=== PATIENT | female | born 1940 ===

== ENCOUNTER 2019-09-08 15:21 | Inpatient (IN) | payer MEDICARE, OTHER, SELFPAY ==
[2019-09-08] VITALS (8 sets, daily range): BP systolic 114–173; BP diastolic 64–105; PULSE 62–134; RESP 16–22; TEMP 37.1–38.8; O2SAT 91–100; BMI 22.4
--- NOTE | 2019-09-08 14:52 | ED_ITS ---
Entered by Dominique Keita, acting as scribe for Mars Velez MD HPI - Fever General: Chief Complaint: Fever Stated Complaint: FEVER X 3 DAYS Time Seen by Provider: 09/08/19 14:52 Source: patient and RN notes reviewed Mode of arrival: ambulatory Limitations: no limitations History of Present Illness: HPI Narrative: 79 yo female presents to ED with complaints of a fever that she has had for 3 days. She said she also has had a headache for the 3 days. The patient has had sick contact recently (her grandson had the flu). She denies any other pain at this time. Her PCP is Greta Walker MD elicited complaint: fever Onset (ago): day(s) (3) Measured temperature: 101.9 F Context: sick contacts Exacerbating factors: nothing Relieving factors: nothing Associated symptoms: Reports headache(s); Deny abdominal pain, chills, chest pain, diarrhea, dysuria, nausea or vomiting Treatments prior to arrival fever: none Review of Systems Const: Denies: chills, body aches or change in appetite Eyes: Denies: blurry vision or eye discomfort ENMT: Denies: throat pain or dental pain Card: Denies: chest pain Resp: Denies: shortness of breath GI: Denies: abdominal pain, nausea, vomiting or diarrhea : Denies: painful urination Musc: Denies: neck pain or back pain Skin/Breast: Denies: rash Neuro: Reports: headache Psych: Denies: depression Jose Cruz/Lymph: Denies: easy bruising All/Imm: Denies: hives PFSH ED PFSH: Statuses (acute, chronic, etc) shown below reflect problem list status as previously entered and may not be historically accurate Medical History (Updated 09/08/19 @ 18:24 by Elif Calix MD) Hypertension (Acute) Osteoarthritis (Acute) Surgical History (Updated 09/08/19 @ 18:24 by Elif Calix MD) H/O exploratory laparotomy (Acute) History of partial colectomy (Acute) With reversal Family History (Updated 09/08/19 @ 18:24 by Elif Calix MD) Sister Cancer Breast cancer Social History (Updated 09/08/19 @ 18:25 by Elif Calix MD) Smoking and tobacco status: former smoker Quit status (tobacco): has quit using tobacco Year quit tobacco: 1991 Alcohol intake: never Substance/Drug Use: never Lives independently: Yes Household members: other Details: Grandson lives with her Physical Exam Const: COMMON NORMALS: no apparent distress, oriented x3 and healthy appearing HENMT: COMMON NORMALS: normocephalic and head/scalp atraumatic HEAD & SCALP: normocephalic and atraumatic Eye: COMMON NORMALS: PERRL and EOMs intact bilaterally PUPIL: Yes PERRL Neck/C-Spine: COMMON NORMALS: full ROM and supple Chest: COMMONS NORMALS: inspection of chest normal and palpation of chest normal Resp: COMMON NORMALS: normal respiratory effort, no retractions and no use of accessory muscles OTHER: rales in rll Cardio: COMMON NORMALS: regular rate, regular rhythm and no murmurs RATE: regular rate RHYTHM: regular rhythm GI: COMMON NORMALS: normal to inspection, nondistended, normoactive bowel sounds, soft to palpation, non-tender and no masses PALPATION: Yes soft Extremity: COMMON NORMALS: normal to inspection and full ROM Neuro: COMMON NORMALS: oriented x3, moves all extremities and no focal motor deficits Psych: COMMON NORMALS: mental status grossly normal, thought process normal and cooperative THOUGHT PROCESS: normal thought process Skin: COMMON NORMALS: no rashes or lesions noted and no wounds GENERAL SKIN EXAM: no rashes or lesions noted Course Vital Signs: Vital signs: Vital Signs Temperature 99.8 F H 09/08/19 17:30 Pulse Rate 134 H 09/08/19 17:30 Respiratory Rate 18 09/08/19 17:30 Blood Pressure 114/94 09/08/19 17:30 Pulse Oximetry 95 09/08/19 17:30 MDM - Fever MDM Narrative: Medical decision making narrative: Patient presents here with a right lower lobe pneumonia. Patient's x-ray here shows a pneumonia and likely causing her fever as well. Her blood pressure is been normal and she is not septic. We will start her on antibiotics I spoke to hospitalist and will admit. Patient does not have influenza. Lab Data: Labs: Lab Results 09/08/19 09/08/19 09/08/19 Range/Units 14:58 15:12 15:12 WBC 1.9 L (4.0-10.0) 10^3/ uL RBC 2.57 L (4.1-5.3) 10^6/u L Hgb 9.2 L (11.5-15.3) g/dL Hct 27.5 L (37.0-47.0) % MCV 107.0 H (81-99) fL MCH 35.8 H (28.0-34.0) pg MCHC 33.5 (30.0-36.0) g/dL RDW 13.2 (12.1-15.1) % Plt Count 117 L (130-400) 10^3/c mm MPV 9.2 (7.4-10.4) fL Neut % (Auto) 68.6 % Lymph % (Auto) 21.8 % Mclean % (Auto) 8.5 % Eos % (Auto) 0.0 % Baso % (Auto) 0.0 % Neut # (Auto) 1.3 L (1.8-7.7) 10^3/u L Lymph # (Auto) 0.4 L (0.8-4.8) 10^3/u L Mclean # (Auto) 0.2 (0.2-0.9) 10^3/u L Eos # (Auto) 0.0 (0.0-0.8) 10^3/u L Baso # (Auto) 0.0 (0.0-0.1) 10^3/u L Nucleated RBC % (a uto) 0 % Nucleated RBCs # 0.0 /100WBC Sodium 131 L (136-145) mmol/L Potassium 3.8 (3.5-5.1) mmol/L Chloride 92 L (98-107) mmol/L Carbon Dioxide 24 (22-29) mmol/L Anion Gap 18.8 (5-19) BUN 27 H (8-23) mg/dL Creatinine 1.1 H (0.5-0.9) mg/dL Glucose 110 H (74-106) mg/dL Lactic Acid (Sepsi s) (0.5-2.2) mmol/L Calcium 9.8 (8.5-10.5) mg/dL Total Bilirubin 0.5 (0.15-1.2) mg/dL AST 42 H (0-32) U/L ALT 19 (0-33) U/L Alkaline Phosphata se 99 (35-105) IU/L Total Protein 7.2 (6.6-8.7) g/dL Albumin 4.0 (3.5-5.2) g/dL Globulin 3.2 (1.3-4.6) g/dL Lipase 46 (13-60) U/L Urine Color (Yellow) Urine Appearance (CLEAR) Urine pH (5-7) Ur Specific Gravit y (1.005-1.030) Urine Protein (Negative) Urine Glucose (UA) (Normal) Urine Ketones (Negative) Urine Occult Blood (Negative) Urine Nitrate (Negative) Urine Bilirubin (NEGATIVE) Urine Urobilinogen (Negative) mg/dL Ur Leukocyte Kim ase (Negative) Urine RBC (0-2) /hpf Urine WBC (0-5) /hpf Ur Squamous Epith Cells (0-5) Urine Bacteria (NONE) Influenza Type A A g Negative (Negative) POC Influenza B Ag Negative (Negative) 09/08/19 09/08/19 Range/Units 15:16 15:28 WBC (4.0-10.0) 10^3/ uL RBC (4.1-5.3) 10^6/u L Hgb (11.5-15.3) g/dL Hct (37.0-47.0) % MCV (81-99) fL MCH (28.0-34.0) pg MCHC (30.0-36.0) g/dL RDW (12.1-15.1) % Plt Count (130-400) 10^3/c mm MPV (7.4-10.4) fL Neut % (Auto) % Lymph % (Auto) % Mclean % (Auto) % Eos % (Auto) % Baso % (Auto) % Neut # (Auto) (1.8-7.7) 10^3/u L Lymph # (Auto) (0.8-4.8) 10^3/u L Mclean # (Auto) (0.2-0.9) 10^3/u L Eos # (Auto) (0.0-0.8) 10^3/u L Baso # (Auto) (0.0-0.1) 10^3/u L Nucleated RBC % (a uto) % Nucleated RBCs # /100WBC Sodium (136-145) mmol/L Potassium (3.5-5.1) mmol/L Chloride (98-107) mmol/L Carbon Dioxide (22-29) mmol/L Anion Gap (5-19) BUN (8-23) mg/dL Creatinine (0.5-0.9) mg/dL Glucose (74-106) mg/dL Lactic Acid (Sepsi s) 1.1 (0.5-2.2) mmol/L Calcium (8.5-10.5) mg/dL Total Bilirubin (0.15-1.2) mg/dL AST (0-32) U/L ALT (0-33) U/L Alkaline Phosphata se (35-105) IU/L Total Protein (6.6-8.7) g/dL Albumin (3.5-5.2) g/dL Globulin (1.3-4.6) g/dL Lipase (13-60) U/L Urine Color Yellow (Yellow) Urine Appearance Sl hazy (CLEAR) Urine pH 6.5 (5-7) Ur Specific Gravit y 1.010 (1.005-1.030) Urine Protein Neg (Negative) Urine Glucose (UA) Norm (Normal) Urine Ketones 1+ H (Negative) Urine Occult Blood 2+ H (Negative) Urine Nitrate Negative (Negative) Urine Bilirubin Neg (NEGATIVE) Urine Urobilinogen Norm (Negative) mg/dL Ur Leukocyte Kim ase Negative (Negative) Urine RBC 5-10 H (0-2) /hpf Urine WBC None (0-5) /hpf Ur Squamous Epith Cells 0-4 H (0-5) Urine Bacteria Trace (NONE) Influenza Type A A g (Negative) POC Influenza B Ag (Negative) Imaging Data^: CXR: Attestation: I personally reviewed and interpreted this imaging study as follows: My impression: RLL pneumonia Discharge Plan Discharge Patient Disposition: Admitted As Inpatient Clinical Impression: Community acquired pneumonia Qualifiers: Laterality: right Lung location: lower lobe of lung Qualified Code(s): J18.9 - Pneumonia, unspecified organism Condition: Stable Referrals: Melissa York MD [Family Provider] - Coding Level of Care Code ED [facility] Trapper for [facility] Fwd Exam Problem Focused The documentation recorded by the Bossman rogers Valerie R, accurately reflects the service I personally performed and the decisions made by me, Mars Velez MD Sep 08, 2019 15:21
--- NOTE | 2019-09-08 14:56 | XRR_ITS ---
PROCEDURE INFORMATION: Exam: XR Chest, 1 View Exam date and time: 09/08/2019 3:12 PM Age: 79 years old Clinical indication: Fever TECHNIQUE: Imaging protocol: XR of the chest Views: 1 view. COMPARISON: CR Chest 1 [place] [id number] 06/21/2014 10:55 AM FINDINGS: Lungs: There is area of patchy consolidation at the right medial lung base. Pleural space: Unremarkable. No pleural effusion. No pneumothorax. Heart/Mediastinum: Unremarkable. No cardiomegaly. Bones/joints: Unremarkable. XR/XR chest 1V portable [id number] IMPRESSION: Patchy consolidation at right lung base medially.
[2019-09-08 15:29] LABS: Hematocrit 27.5 % (37.0-47.0); Hemoglobin 9.2 g/dL (11.5-15.3); Lymphocytes % 21.8 %; Mean Corpuscular HGB Conc 33.5 g/dL (30.0-36.0); Mean Corpuscular Hemoglobin 35.8 pg (28.0-34.0); Mean Platelet Volume 9.2 fL (7.4-10.4); Monocytes % 8.5 %; Neutrophils % 68.6 %; Platelet Count 117 10^3/cmm (130-400); Red Blood Count 2.57 10^6/uL (4.1-5.3); Red Cell Distribution Width 13.2 % (12.1-15.1); White Blood Count 1.9 10^3/uL (4.0-10.0)
[2019-09-08 15:30] LABS: Lymphocytes # 0.4 10^3/uL (0.8-4.8); Monocytes # 0.2 10^3/uL (0.2-0.9); Neutrophils # 1.3 10^3/uL (1.8-7.7); Nucleated Red Blood Cells % 0 %
[2019-09-08 15:44] LABS: Alanine Aminotransferase 19 U/L (0-33); Alkaline Phosphatase 99 IU/L (35-105); Anion Gap 18.8 (5-19); Aspartate Amino Transferase 42 U/L (0-32); Blood Urea Nitrogen 27 mg/dL (8-23); Calcium 9.8 mg/dL (8.5-10.5); Carbon Dioxide 24 mmol/L (22-29); Chloride 92 mmol/L (98-107); Globulin 3.2 g/dL (1.3-4.6); Glucose 110 mg/dL (74-106); Lipase 46 U/L (13-60); Potassium 3.8 mmol/L (3.5-5.1); Sodium 131 mmol/L (136-145); Total Bilirubin 0.5 mg/dL (0.15-1.2); Total Protein 7.2 g/dL (6.6-8.7)
[2019-09-08] MEDS: morphine 4 mg/mL SDV 1 mL IVP (15:47)
[2019-09-08] MEDS: acetaminophen 325 mg Tablet 650 MG PO (15:47)
[2019-09-08] MEDS: sodium chloride 0.9% 1,000 ML 999 ML IV (15:49)
[2019-09-08] MEDS: ondansetron 2 mg/ML SDV 2 mL 4 MG IVP (15:49)
[2019-09-08 15:56] LABS: Add Urine Microscopic? YES; Bilirubin Urine Neg (NEGATIVE); Blood Urine 2+ (Negative); Glucose Urine UA Norm (Normal); Ketones Urine 1+ (Negative); Leukocyte Esterase Urine Negative (Negative); Nitrate Urine Negative (Negative); Protein Urine Neg (Negative); Urine Appearance SL Hazy (CLEAR); Urine Color Yellow (Yellow); Urobilinogen Urine Norm (Negative); pH Urine 6.5 (5-7)
[2019-09-08 15:58] LABS: Slide Review Slide Review Perform
[2019-09-08 16:04] LABS: Influenza A by IFA Negative (Negative); Influenza B by IFA Negative (Negative)
[2019-09-08 16:07] LABS: Lactic Acid level (Lactate) 1.1 mmol/L (0.5-2.2)
[2019-09-08 16:16] LABS: Bacteria Urine TRACE; Squamous Epithelial Cell Urine 0-4 (0-5)
[2019-09-08] MEDS: cefTRIAXone 1,000 MG in sodium chloride 0.9% (plus) 50 ML 100 MG IV (16:20)
[2019-09-08] MEDS: azithromycin 500 MG in sodium chloride 0.9% 250 ML 250 MG IV (17:02)
--- NOTE | 2019-09-08 18:08 | P.HP_ITS ---
Providers/Chief Complaint Admitting Physician: Elif Calix MD Chief Complaint: PNEUMONIA, FEVER History of Present Illness Leslee Barbosa is a 79 year old female with PMHx of OA, HTN, presents via EMS for evaluation of malaise and fever x 3 days. She initially thought she had the flu based on her symptoms; she did receive the influenza and pneumonia vaccines. She is not oxygen dependent at baseline, has no hx of COPD or asthma. Because she has been feeling so poorly, she has not been taking her BP meds as prescribed. She is on narcotics for chronic back and knee pain secondary to OA. She ambulates independently at home but has to use a cane whenever she goes out. Denies any recent falls. She lives at home with her grandson who called for an ambulance earlier today when patient complained that she was not getting any better. There are several family members at bedside during my assessment in the ER. Patient is able to provide much of her own history with family providing some collateral information. She was quite febrile with a T-max of 101.9F and quite hypertensive with a blood pressure 145/104. She remains tachycardic, saturating at 97% on room air. Lab work indicates leukopenia with a white count of 1.9, anemia with a hemoglobin of 9.2, thrombocytopenia with a platelet count of 117, creatinine of 1.1, BUN of 27, lactic acid of 1.1, chest x-ray showing patchy consolidation of the right lung base. She has received a dose of azithromycin and ceftriaxone. Influenza screen is negative. Explained findings from labs and imaging to patient and family at bedside, they are agreeable to the treatment plan. Review of Systems Const: Reports: fever, body aches, change in appetite (decreased appetite), fatigue and malaise; Denies: chills Eyes: Denies: change in vision ENMT: Reports: dry mouth Card: Denies: chest pain, swelling of feet/ankles or lightheadedness Resp: Denies: shortness of breath, productive cough, non-productive cough or wheezing GI: Denies: abdominal pain, nausea, vomiting, vomiting blood or blood in stool : Denies: difficulty urinating, painful urination or urinary frequency Musc: Reports: back pain (Chronic) Skin/Breast: Denies: rash Neuro: Denies: numbness in extremities or weakness in extremities Psych: Denies: anxiety Medications/Allergies Home Medications Medication Instructions Recorded Confirmed Last Taken Type bisoprolol-hydrochlorothiazide 1 tab PO DAILY 09/08/19 09/08/19 09/06/19 History conjugated estrogens [Premarin] See Rx Instructions .ROUTE .COMPLEX 09/08/19 09/08/19 Unknown History cyclobenzaprine 10 mg PO TID PRN 09/08/19 09/08/19 09/06/19 History oxycodone-acetaminophen 1 tab PO TID PRN 09/08/19 09/08/19 09/06/19 History Allergies Allergy/AdvReac Type Severity Reaction Status Date / Time Sulfa (Sulfonamide Allergy Unknown Unknown Verified 09/08/19 16:57 Antibiotics) PFSH Acute PFSH: Statuses (acute, chronic, etc) shown below reflect problem list status as previously entered and may not be historically accurate Medical History (Updated 09/08/19 @ 18:29 by Elif Calix MD) Hypertension (Acute) Osteoarthritis (Acute) Surgical History (Updated 09/08/19 @ 18:24 by Elif Calix MD) H/O exploratory laparotomy (Acute) History of partial colectomy (Acute) With reversal Family History (Updated 09/08/19 @ 18:24 by Elif Calix MD) Sister Cancer Breast cancer Social History (Updated 09/08/19 @ 18:25 by Elif Calix MD) Smoking and tobacco status: former smoker Quit status (tobacco): has quit using tobacco Year quit tobacco: 1991 Alcohol intake: never Substance/Drug Use: never Lives independently: Yes Household members: other Details: Grandson lives with her Vitals/I&O/Wt Last Vital Signs Temp 99.8 F H 09/08/19 17:30 Pulse 134 H 09/08/19 17:30 Resp 18 09/08/19 17:30 BP 114/94 09/08/19 17:30 Pulse Ox 95 09/08/19 17:30 Weight last 48 hrs Weight 52.163 kg Physical Exam Const: COMMON NORMALS: no apparent distress and oriented x3 GENERAL APPEARANCE: cooperative and comfortable ORIENTATION/CONSCIOUSNESS: Yes awake HENMT: COMMON NORMALS: normocephalic, head/scalp atraumatic, hearing grossly normal bilaterally and moist oral mucous membranes HEAD & SCALP: normocephalic and atraumatic Eye: COMMON NORMALS: PERRL, EOMs intact bilaterally and conjunctivae normal CONJUNCTIVA: Yes conjunctivae normal PUPIL: Yes PERRL Neck/C-Spine: COMMON NORMALS: full ROM GENERAL: Yes normal visual inspection and Yes trachea midline Resp: COMMON NORMALS: normal respiratory effort, no retractions, no use of accessory muscles and clear to auscultation bilaterally EFFORT & INSPECTION: Yes able to speak in complete sentences, Yes symmetric chest movement and No tachypneic AUSCULTATION: clear to auscultation bilaterally Cardio: COMMON NORMALS: regular rhythm, S1 normal heart sound, S2 normal heart sound and no murmurs RATE: tachycardic RHYTHM: regular rhythm HEART SOUNDS: S1 normal and S2 normal GI: COMMON NORMALS: normal to inspection, nondistended, normoactive bowel sounds, soft to palpation and non-tender PALPATION: Yes soft Extremity: COMMON NORMALS: normal to inspection, full ROM and no clubbing, cyanosis or edema; negative for no pedal edema Neuro: COMMON NORMALS: oriented x3, moves all extremities, no focal motor deficits and no sensory deficits noted Psych: COMMON NORMALS: mental status grossly normal, thought process normal, cooperative, affect normal and speech normal SPEECH: Yes normal speech THOUGHT PROCESS: normal thought process Skin: COMMON NORMALS: no rashes or lesions noted, no jaundice, no petechiae and no mottling GENERAL SKIN EXAM: no rashes or lesions noted Sepsis: Is patient septic: Yes Focused sepsis exam performed: Yes Data : 09/08/19 15:12 09/08/19 15:12 Micro: Microbiology 09/08/19 15:28 Blood Culture - Preliminary Blood SPECIMEN COLLECTED 09/08/19 15:23 Blood Culture - Preliminary Blood SPECIMEN COLLECTED A&P Assessment and plan (1) Community acquired pneumonia: -noted patchy consolidation of right lung base on CXR -concern for sepsis given fever, tachycardia, leukopenia, thrombocytopenia, -monitor respiratory status -supplemental oxygen as needed -monitor vital signs -received Ceftriaxone and Azithromycin in ED, continue treatment with levaquin -monitor WBC Status: Acute Qualifiers: Laterality: right Lung location: lower lobe of lung Qualified Code(s): J18.9 - Pneumonia, unspecified organism Code(s): J18.9 - Pneumonia, unspecified organism (2) Hypertension: -quite hypertensive on arrival, has been off antihypertensives for at least 2 days -resume oral antihypertensives -continue to monitor vital signs Status: Acute Qualifiers: Hypertension type: essential hypertension Qualified Code(s): I10 - Essential (primary) hypertension Code(s): I10 - Essential (primary) hypertension (3) Osteoarthritis: -resume oral pain meds Status: Acute Qualifiers: Osteoarthritis location: multiple joints Osteoarthritis type: primary Qualified Code(s): M15.0 - Primary generalized (osteo)arthritis Code(s): M19.90 - Unspecified osteoarthritis, unspecified site Additional A&P Information -Advanced age -Chronic normocytic anemia; baseline Hg 9-10; continue to monitor H/H -Chronic leukopenia; baseline WBC 3-4 -Acute thrombocytopenia; monitor platelet count -mild FREIDA; baseline Cr wnl; gentle IVF hydration. Continue to monitor renal function -low salt diet as tolerated -DVT ppx with Lovenox, monitor platelet count -fall precautions, PT evaluation -Dispo: home -Code status: FULL code Attestations Medical Necessity Statement*: Patient requires hospitalization for management of acute pneumonia, needs IV antibiotics and monitoring of respiratory and hemodynamic status. Time Spent in Patient Care: Greater than 35 minutes (>than 50% of time spent in counselling and/or direct pt care on unit) . 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
[2019-09-08 18:41] LABS: Procalcitonin 0.21 ng/mL (0-0.5)
[2019-09-08] MEDS: oxyCODONE-APAP 5-325 mg Tablet 1 TAB PO (21:11)
[2019-09-08] MEDS: levofloxacin-dextrose 5 % 750 MG/150 ML PREMIX 150 MG IV (21:12)
[2019-09-08] MEDS: sodium chloride 0.9% 1,000 ML 75 ML IV (21:12)
[2019-09-08] MEDS: hydroCHLOROthiazide 25 mg Tablet 12.5 MG PO (21:13)
[2019-09-08] MEDS: enoxaparin 40 mg/0.4 mL Syringe SUBCUT (21:18)
[2019-09-08] MEDS: cyclobenzaprine 10 mg Tablet PO (23:23)
[2019-09-09] VITALS (7 sets, daily range): BP systolic 126–171; BP diastolic 62–89; PULSE 72–139; RESP 18–24; TEMP 36.9–39.2; O2SAT 92–95
[2019-09-09] MEDS: oxyCODONE-APAP 5-325 mg Tablet 1 TAB PO ×2 (03:57→17:48)
[2019-09-09 05:30] LABS: Hematocrit 24.4 % (37.0-47.0); Hemoglobin 8.2 g/dL (11.5-15.3); Lymphocytes # 0.4 10^3/uL (0.8-4.8); Lymphocytes % 23.1 %; Mean Corpuscular HGB Conc 33.6 g/dL (30.0-36.0); Mean Platelet Volume 9.3 fL (7.4-10.4); Monocytes # 0.1 10^3/uL (0.2-0.9); Monocytes % 6.5 %; Neutrophils # 1.3 10^3/uL (1.8-7.7); Neutrophils % 69.3 %; Nucleated Red Blood Cells % 0 %; Platelet Count 93 10^3/cmm (130-400); Red Blood Count 2.28 10^6/uL (4.1-5.3); Red Cell Distribution Width 13.5 % (12.1-15.1); White Blood Count 1.9 10^3/uL (4.0-10.0)
[2019-09-09 05:44] LABS: Anion Gap 21.8 (5-19); Blood Urea Nitrogen 26 mg/dL (8-23); Calcium 8.6 mg/dL (8.5-10.5); Carbon Dioxide 20 mmol/L (22-29); Chloride 95 mmol/L (98-107); Glucose 106 mg/dL (74-106); Osmolality Calculated 273 mOsm/kg (285-295); Potassium 3.8 mmol/L (3.5-5.1); Sodium 133 mmol/L (136-145)
[2019-09-09 05:57] LABS: Slide Review Slide Review Perform
--- NOTE | 2019-09-09 09:33 | P.PN_ITS ---
Subjective Subjective: Interval history: AM labs noted, continues to be febrile, Tmax- 102.6 F. Patient seen and examined, grandson at bedside, still somewhat ill- appearing. Continues to spike high-grade temperatures so we will add vancomycin for broader spectrum coverage. Slight improvement in appetite and oral intake. Medications: Reviewed: Yes Medication Review Details: Current Medications Generic Name Dose Route Start Last Admin Trade Name Freq PRN Reason Stop Dose Admin Bisoprolol Fumarat e 10 mg 09/09/19 09:00 09/09/19 08:53 Zebeta PO 10 mg DAILY KIRK Administration Cyclobenzaprine HC l 10 mg 09/08/19 18:08 09/08/19 23:23 Flexeril PO 10 mg TID PRN Administration Muscle Spasm Sodium Chloride 1,000 mls @ 75 ml s/hr 09/08/19 18:15 09/08/19 21:12 Sodium Chloride 0.9% IV 75 mls/hr .[id number] KIRK Administration Oxycodone/Acetamin ophen 1 tab 09/08/19 18:08 09/09/19 03:57 Percocet 5-325 M g PO 1 tab Q4H PRN Administration SEVERE PAIN Vitals/I&O/Wt Last Vital Signs Temp 100.2 F H 09/09/19 07:25 Pulse 79 09/09/19 07:25 Resp 22 H 09/09/19 07:25 BP 139/69 09/09/19 07:25 Pulse Ox 95 09/09/19 07:25 09/08/19 09/09/19 09/09/19 22:59 06:59 14:59 Intake Total 360 / 360 Output Total 200 / 200 125 / 125 Balance -200 / -200 235 / 235 Weight last 48 hrs Weight 55.537 kg Weight 52.163 kg Physical Exam Const: COMMON NORMALS: no apparent distress and oriented x3 GENERAL APPEARANCE: cooperative, comfortable, ill appearing and frail appearing ORIENTATION/CONSCIOUSNESS: Yes awake HENMT: COMMON NORMALS: normocephalic, head/scalp atraumatic, hearing grossly normal bilaterally and moist oral mucous membranes HEAD & SCALP: normocephalic and atraumatic Eye: COMMON NORMALS: PERRL, EOMs intact bilaterally and conjunctivae normal CONJUNCTIVA: Yes conjunctivae normal PUPIL: Yes PERRL Neck/C-Spine: COMMON NORMALS: full ROM GENERAL: Yes normal visual inspection and Yes trachea midline Resp: COMMON NORMALS: normal respiratory effort, no retractions, no use of accessory muscles and clear to auscultation bilaterally EFFORT & INSPECTION: Yes able to speak in complete sentences, Yes symmetric chest movement and No tachypneic AUSCULTATION: clear to auscultation bilaterally Cardio: COMMON NORMALS: regular rhythm, S1 normal heart sound, S2 normal heart sound and no murmurs RATE: tachycardic RHYTHM: regular rhythm HEART SOUNDS: S1 normal and S2 normal GI: COMMON NORMALS: normal to inspection, nondistended, normoactive bowel sounds, soft to palpation and non-tender PALPATION: Yes soft Extremity: COMMON NORMALS: normal to inspection, full ROM and no clubbing, cyanosis or edema; negative for no pedal edema Neuro: COMMON NORMALS: oriented x3, moves all extremities, no focal motor deficits and no sensory deficits noted Psych: COMMON NORMALS: mental status grossly normal, thought process normal, cooperative, affect normal and speech normal SPEECH: Yes normal speech THOUGHT PROCESS: normal thought process Skin: COMMON NORMALS: no rashes or lesions noted, no jaundice, no petechiae and no mottling GENERAL SKIN EXAM: no rashes or lesions noted Data : 09/09/19 04:36 09/09/19 04:36 Micro: Microbiology 09/08/19 15:28 Blood Culture - Preliminary Blood SPECIMEN COLLECTED 09/08/19 15:23 Blood Culture - Preliminary Blood SPECIMEN COLLECTED A&P Assessment and plan (1) Community acquired pneumonia: -noted patchy consolidation of right lung base on CXR -concern for sepsis given fever, tachycardia, leukopenia, thrombocytopenia. -continue to monitor respiratory status -supplemental oxygen as needed -continue to monitor vital signs -received Ceftriaxone and Azithromycin in ED, continue treatment with levaquin and add vancomycin for broader spectrum coverage -continue to monitor WBC, platelet count -negative for influenza; check bacterial antigens, Legionella Status: Acute Qualifiers: Laterality: right Lung location: lower lobe of lung Qualified Code(s): J18.9 - Pneumonia, unspecified organism Code(s): J18.9 - Pneumonia, unspecified organism (2) Hypertension: -quite hypertensive on arrival, has been off antihypertensives for at least 2 days prior to admission -resumed oral antihypertensives -continue to monitor vital signs; stable BP Status: Acute Qualifiers: Hypertension type: essential hypertension Qualified Code(s): I10 - Essential (primary) hypertension Code(s): I10 - Essential (primary) hypertension (3) Osteoarthritis: -resumed oral pain meds Status: Acute Qualifiers: Osteoarthritis location: multiple joints Osteoarthritis type: primary Qualified Code(s): M15.0 - Primary generalized (osteo)arthritis Code(s): M19.90 - Unspecified osteoarthritis, unspecified site Additional A&P Information -Advanced age -Chronic normocytic anemia; baseline Hg 9-10; continue to monitor H/H -Chronic leukopenia; baseline WBC 3-4. Not neutropenic -Acute thrombocytopenia; monitor platelet count -mild FREIDA; baseline Cr wnl; gentle IVF hydration. Continue to monitor renal function -low salt diet as tolerated -DVT ppx with SCDs, d/c Lovenox due to low platelet count, anemia -fall precautions, PT evaluation -Dispo: home -Code status: FULL code Attestations Medical Necessity Statement*: Patient requires hospitalization for continued management of right sided pneumonia, on IV antibiotics. Time Spent in Patient Care: Greater than 35 minutes (>than 50% of time spent in counselling and/or direct pt care on unit) . 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
[2019-09-09] MEDS: acetaminophen 325 mg Tablet 650 MG PO (11:31)
[2019-09-09] MEDS: sodium chloride 0.9% 1,000 ML 75 ML IV (11:33)
--- NOTE | 2019-09-09 14:04 | PC.CHAP ---
Pastoral Care Encounter/Spiritual Assessment Type of Contact [] Declined telex operator visit [] Patient/Family/Request visit [] Outpatient visit [] Follow-up visit [] Physician referral [] Code/Alert [x] Routine visit [] Staff referral [] Actively dying [] Patient sleeping [] Family support [] [] Out of room [] Palliative care [] [] Receiving care in room [] Pre-surgical visit [] Trauma [] Long length of stay [] ICU visit [] Other: Relational/Emotional Strength [x] Patient feels connected with others/family/visitors/staff [] Distress [] Loneliness/isolation [] Abandonment Spirituality of Patient [x] Person of Maura [] Attends Muslim of their Maura [x] Believes in Prayer [] Reads Bible or Anabaptist materials [] There are Spiritual issues to be addressed Battery Container Finishing Hand Interventions [x] Prayer [x] Active listening [x] Non-anxious presence [x] Spiritual/emotional support [] Crisis/trauma care [] Spiritual counseling [] Bereavement support [] Provided bereavement packet [] Provided Bible/devotional materials [] Provided toy/stuffed animal, coloring book to patient or family member [] Provided Communion [] Anointing/[place] [] Salvation [] Completed spiritual assessment [] Other: Impact on Illness or Injury [] Angry [] Fearful [] Anxious [] Often cries [] Exhaustion [] Unable to work [] Unable to attend baptist [] Unable to walk/stand [] Unable to read [] Unable to drive [] Unable to eat/drink [] Unable to sleep [] Unable to be with family [] Patient intubated [] Other: Summary The telex operator visited with the patient and prayed for her. Time spent with patient 10 min.
--- NOTE | 2019-09-09 15:26 | PC.PHAR ---
Vancomycin dosing per Pharmacy 750mg Q24h Patient: Floor: Age: 79 yo Serum creatinine: 1.0 mg/dL Height: 59.8 Inches Weight (kg): 55 IBW (kg): 45.35 Dosing wt(kg): 55 Estimated Creatinine clearance (ml/min): 32.1 CRCL method: Cockcroft and Gault using ibw(default). Drug selected: Vancomycin Loading dose (mg): Vd (liters): 38.5 (factor used: 0.7 L/kg) Tank (hr-1): 0.031 Half life (hrs): 22.36 CLvanco= 1.194 L/hr Recommended dose: 750 mg Interval: 24 hrs Infusion time (hrs): 1 Predicted peak (mcg/mL): 36.6 Predicted trough (mcg/mL): 17.94 Total body weight is being used for vancomycin dosing. Recommendations: Give Vancomycin 750 mg q 24 hrs with an expected Cpeak of 36.6 mcg/ml and an expected Ctrough of 17.94 mcg/ml
[2019-09-09] MEDS: vancomycin 750 MG in sodium chloride 0.9% 250 ML 250 MG IV (17:51)
[2019-09-10] VITALS (13 sets, daily range): BP systolic 137–184; BP diastolic 77–94; PULSE 72–145; RESP 14–24; TEMP 37.3–39.2; O2SAT 91–95
[2019-09-10] MEDS: oxyCODONE-APAP 5-325 mg Tablet 1 TAB PO ×5 (00:33→19:38)
[2019-09-10] MEDS: sodium chloride 0.9% 1,000 ML 75 ML IV ×2 (00:40→14:19)
[2019-09-10] MEDS: acetaminophen 325 mg Tablet 650 MG PO ×3 (02:38→22:13)
[2019-09-10 05:15] LABS: Hematocrit 26.1 % (37.0-47.0); Hemoglobin 8.9 g/dL (11.5-15.3); Lymphocytes # 0.4 10^3/uL (0.8-4.8); Lymphocytes % 16.9 %; Mean Corpuscular HGB Conc 34.1 g/dL (30.0-36.0); Mean Corpuscular Hemoglobin 35.9 pg (28.0-34.0); Mean Corpuscular Volume 105.2 fL (81-99); Mean Platelet Volume 9.2 fL (7.4-10.4); Monocytes # 0.1 10^3/uL (0.2-0.9); Monocytes % 4.2 %; Neutrophils # 1.9 10^3/uL (1.8-7.7); Neutrophils % 78.5 %; Nucleated Red Blood Cells % 0 %; Platelet Count 90 10^3/cmm (130-400); Red Blood Count 2.48 10^6/uL (4.1-5.3); Red Cell Distribution Width 13.2 % (12.1-15.1); White Blood Count 2.4 10^3/uL (4.0-10.0)
[2019-09-10 05:33] LABS: Anion Gap 16.2 (5-19); Blood Urea Nitrogen 24 mg/dL (8-23); Calcium 8.8 mg/dL (8.5-10.5); Carbon Dioxide 21 mmol/L (22-29); Chloride 95 mmol/L (98-107); Glucose 122 mg/dL (65-115); Osmolality Calculated 266 mOsm/kg (285-295); Potassium 3.2 mmol/L (3.5-5.1); Sodium 129 mmol/L (136-145)
[2019-09-10 05:37] LABS: Slide Review Slide Review Perform
--- NOTE | 2019-09-10 08:59 | P.PN_ITS ---
Subjective Subjective: Interval history: AM labs noted, had 300 mL urine output overnight. Replace K. Noted tachycardia overnight, will place on telemetry. Fever curve trending down. Patient seen and examined, appears quite fatigued, grandson at bedside, was able to ambulate in the hallway with PT earlier this AM but is now quite tired. Informed by nursing staff that she has significant difficulty swallowing her pills. Patient indicates that she has had ongoing issues with this as well as with liquids and food at home. Will request ST evaluation and add anaerobic coverage due to concern for possible aspiration. Medications: Reviewed: Yes Medication Review Details: Current Medications Generic Name Dose Route Start Last Admin Trade Name Freq PRN Reason Stop Dose Admin Acetaminophen 650 mg 09/08/19 21:00 09/10/19 02:38 Tylenol PO 650 mg Q6H PRN Administration Mild/Mod Pain Or Temp >/= 101 Bisoprolol Fumarat e 10 mg 09/09/19 09:00 09/09/19 08:53 Zebeta PO 10 mg DAILY KIRK Administration Cyclobenzaprine HC l 10 mg 09/08/19 18:08 09/08/19 23:23 Flexeril PO 10 mg TID PRN Administration Muscle Spasm Sodium Chloride 1,000 mls @ 100 m ls/hr 09/08/19 18:15 09/10/19 00:40 Sodium Chloride 0.9% IV 75 mls/hr .Q10H KIRK Administration Vancomycin HCl 750 mg/ Sodium 250 mls @ 250 mls /hr 09/09/19 17:00 09/09/19 17:51 Chloride IV 250 mls/hr Q24H KIRK Administration Protocol Oxycodone/Acetamin ophen 1 tab 09/08/19 18:08 09/10/19 06:41 Percocet 5-325 M g PO 1 tab Q4H PRN Administration SEVERE PAIN Vitals/I&O/Wt Last Vital Signs Temp 99.8 F H 09/10/19 07:22 Pulse 86 09/10/19 07:22 Resp 20 H 09/10/19 07:22 BP 137/77 09/10/19 07:22 Pulse Ox 93 09/10/19 07:22 09/09/19 09/10/19 09/10/19 22:59 06:59 14:59 Intake Total 720 / 2440 983.75 / 3423.75 360 / 360 Output Total 300 / 425 Balance 720 / 2315 683.75 / 2998.75 360 / 360 Weight last 48 hrs Weight 56.416 kg Weight 55.537 kg Weight 52.163 kg Physical Exam Const: COMMON NORMALS: no apparent distress and oriented x3 GENERAL APPEARANCE: cooperative, comfortable, ill appearing and frail appearing (fatigued) ORIENTATION/CONSCIOUSNESS: Yes awake HENMT: COMMON NORMALS: normocephalic, head/scalp atraumatic, hearing grossly normal bilaterally and moist oral mucous membranes HEAD & SCALP: normocephalic and atraumatic Eye: COMMON NORMALS: PERRL, EOMs intact bilaterally and conjunctivae normal CONJUNCTIVA: Yes conjunctivae normal PUPIL: Yes PERRL Neck/C-Spine: COMMON NORMALS: full ROM GENERAL: Yes normal visual inspection and Yes trachea midline Resp: COMMON NORMALS: normal respiratory effort, no retractions, no use of accessory muscles and clear to auscultation bilaterally EFFORT & INSPECTION: Yes able to speak in complete sentences, Yes symmetric chest movement and No tachypneic AUSCULTATION: clear to auscultation bilaterally Cardio: COMMON NORMALS: S1 normal heart sound, S2 normal heart sound and no m urmurs RATE: tachycardic RHYTHM: abnormal rhythm irregularly irregular HEART SOUNDS: S1 normal and S2 normal GI: COMMON NORMALS: normal to inspection, nondistended, normoactive bowel sounds, soft to palpation and non-tender PALPATION: Yes soft Extremity: COMMON NORMALS: normal to inspection, full ROM and no clubbing, cyanosis or edema; negative for no pedal edema Neuro: COMMON NORMALS: oriented x3, moves all extremities, no focal motor deficits and no sensory deficits noted Psych: COMMON NORMALS: mental status grossly normal, thought process normal, cooperative, affect normal and speech normal SPEECH: Yes normal speech THOUGHT PROCESS: normal thought process Skin: COMMON NORMALS: no rashes or lesions noted, no jaundice, no petechiae and no mottling GENERAL SKIN EXAM: no rashes or lesions noted Data : 09/10/19 04:32 09/10/19 04:32 Micro: Microbiology 09/08/19 15:23 Blood Culture - Preliminary Blood NEGATIVE TO DATE 09/08/19 15:28 Blood Culture - Preliminary Blood NEGATIVE TO DATE 09/08/19 15:16 Urine Culture - Preliminary Urine,Clean Catch A&P Assessment and plan (1) Community acquired pneumonia: -noted patchy consolidation of right lung base on CXR -concern for sepsis given fever, tachycardia, leukopenia, thrombocytopenia. -continue to monitor respiratory status -supplemental oxygen as needed -continue to monitor vital signs -received Ceftriaxone and Azithromycin in ED, continue treatment with levaquin and vancomycin for broader spectrum coverage. Given dysphagia, concern for possible aspiration, will add anaerobic coverage (metronidazole) -continue to monitor WBC, platelet count -negative for influenza; bacterial antigens, Legionella also negative -blood cx: prelim negative -ST evaluation appreciated: switched to mechanical soft with nectar thick liquids -aspiration precautions Status: Acute Qualifiers: Laterality: right Lung location: lower lobe of lung Qualified Code(s): J18.9 - Pneumonia, unspecified organism Code(s): J18.9 - Pneumonia, unspecified organism (2) Hypertension: -quite hypertensive on arrival, has been off antihypertensives for at least 2 days prior to admission -resumed oral antihypertensives -continue to monitor vital signs; stable BP Status: Acute Qualifiers: Hypertension type: essential hypertension Qualified Code(s): I10 - Essential (primary) hypertension Code(s): I10 - Essential (primary) hypertension (3) Osteoarthritis: -resumed oral pain meds Status: Acute Qualifiers: Osteoarthritis location: multiple joints Osteoarthritis type: primary Qualified Code(s): M15.0 - Primary generalized (osteo)arthritis Code(s): M19.90 - Unspecified osteoarthritis, unspecified site Additional A&P Information -Advanced age -Chronic normocytic anemia; baseline Hg 9-10; continue to monitor H/H. Stable -Chronic leukopenia; baseline WBC 3-4. Not neutropenic -Acute thrombocytopenia; monitor platelet count -mild FREIDA; baseline Cr wnl; gentle IVF hydration. Continue to monitor renal function -noted tachycardia, place on telemetry -Hyponatremia; on IVF hydration -low salt diet as tolerated -DVT ppx with SCDs, d/c Lovenox due to low platelet count, anemia -fall precautions, PT evaluation -Dispo: home -Code status: FULL code Attestations Medical Necessity Statement*: Patient requires hospitalization for continued IV antibiotic treatment for R-sided pneumonia. Time Spent in Patient Care: Greater than 35 minutes (>than 50% of time spent in counselling and/or direct pt care on unit) . Coding Level of Care Code Acute Systems Qa Analyst for Chg 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
[2019-09-10] MEDS: metroNIDAZOLE IV 500 MG/100 ML PREMIX 100 MG IV ×2 (15:14→22:15)
[2019-09-10] MEDS: vancomycin 750 MG in sodium chloride 0.9% 250 ML 250 MG IV (16:20)
[2019-09-10] MEDS: cyclobenzaprine 10 mg Tablet PO (22:20)
[2019-09-11] VITALS (15 sets, daily range): BP systolic 116–178; BP diastolic 68–94; PULSE 89–128; RESP 16–26; TEMP 36.6–38.4; O2SAT 84–93
--- NOTE | 2019-09-11 03:58 | ECG_ITS ---
Measurements Intervals [place] Rate: 118 P: WI: 0 QRS: 28 QRSD: 74 T: 31 QT: 280 QTc: 393 ATRIAL FIBRILLATION WITH RAPID VENTRICULAR RESPONSE LOW QRS VOLTAGE IN PRECORDIAL LEADS [QRS DEFLECTION < 1.0 mV IN CHEST LEADS] SEPTAL MYOCARDIAL INFARCTION [40+ ms Q WAVE IN V1/V2], OF INDETERMINATE AGE No previous ECG available for comparison Electronically Signed On 09-11-2019 16:38:09 SALICYLIC ACID BLENDER by Vasu De León M.D. [email or web address]
[2019-09-11] MEDS: oxyCODONE-APAP 5-325 mg Tablet 1 TAB PO ×3 (04:11→20:08)
[2019-09-11] MEDS: metoprolol tartrate 1 mg/1 mL SDV 5 mL 5 MG IV ×3 (04:18→05:23)
[2019-09-11 04:41] LABS: Anion Gap 17.5 (5-19); Blood Urea Nitrogen 20 mg/dL (8-23); Calcium 8.8 mg/dL (8.5-10.5); Carbon Dioxide 20 mmol/L (22-29); Chloride 94 mmol/L (98-107); Glucose 108 mg/dL (65-115); Osmolality Calculated 263 mOsm/kg (285-295); Potassium 3.5 mmol/L (3.5-5.1); Sodium 128 mmol/L (136-145)
[2019-09-11] MEDS: dilTIAZem 30 mg Tablet PO ×4 (04:48→21:56)
[2019-09-11] MEDS: sodium chloride 0.9% 1,000 ML 75 ML IV (05:24)
[2019-09-11] MEDS: metroNIDAZOLE IV 500 MG/100 ML PREMIX 100 MG IV ×3 (06:11→22:21)
--- NOTE | 2019-09-11 09:04 | P.PN_ITS ---
Subjective Subjective: Interval history: AM labs noted, developed A.fib with RVR and got IV metoprolol, also started on oral cardizem. Afebrile overnight. Patient seen and examined, family at bedside, quite frail appearing and ill, more so today. Very lackluster appetite though I am still concerned that she may be aspirating. Spiked a temperature of 101.2 F this afternoon. Remains tachycardic with heart rate in the 110-120 range. Has noted some episodes of loose stool, presumably from antibiotics. If persistent will need to check stool studies. Medications: Reviewed: Yes Medication Review Details: Current Medications Generic Name Dose Route Start Last Admin Trade Name Freq PRN Reason Stop Dose Admin Acetaminophen 650 mg 09/08/19 21:00 09/10/19 22:13 Tylenol PO 650 mg Q6H PRN Administration Mild/Mod Pain Or Temp >/= 101 Albuterol Sulfate 2.5 mg 09/10/19 16:00 09/11/19 08:46 Albuterol INHALATION 2.5 mg Q4H.RESPIRATORY P RN Administration SHORTNESS OF ALESSANDRO TH Bisoprolol Fumarat e 10 mg 09/09/19 09:00 09/11/19 08:07 Zebeta PO 10 mg DAILY KIRK Administration Cyclobenzaprine HC l 10 mg 09/08/19 18:08 09/10/19 22:20 Flexeril PO 10 mg TID PRN Administration Muscle Spasm Diltiazem HCl 30 mg 09/11/19 04:45 09/11/19 04:48 Cardizem PO 30 mg Q6H KIRK Administration Sodium Chloride 1,000 mls @ 100 m ls/hr 09/08/19 18:15 09/11/19 05:24 Sodium Chloride 0.9% IV 75 mls/hr .Q10H KIRK Administration Vancomycin HCl 750 mg/ Sodium 250 mls @ 250 mls /hr 09/09/19 17:00 09/10/19 17:40 Chloride IV Infused Q24H KIRK Infusion Protocol Metronidazole 500 mg in 100 mls @ 100 mls/hr 09/10/19 15:15 09/11/19 06:11 Flagyl Iv IV 100 mls/hr Q8H KIRK Administration Protocol Metoprolol Tartrat e 5 mg 09/10/19 12:11 09/11/19 04:18 Metoprolol Tartr ate IV 5 mg Q4H PRN Administration HEART RATE-HIGH Oxycodone/Acetamin ophen 1 tab 09/08/19 18:08 09/11/19 04:11 Percocet 5-325 M g PO 1 tab Q4H PRN Administration SEVERE PAIN Vitals/I&O/Wt Last Vital Signs Temp 99.3 F 09/11/19 07:59 Pulse 112 H 09/11/19 08:56 Resp 22 H 09/11/19 08:56 BP 171/81 09/11/19 07:59 Pulse Ox 93 09/11/19 08:56 09/10/19 09/11/19 09/11/19 22:59 06:59 14:59 Intake Total 721.25 / 2321.25 848.75 / 3170.00 Output Total 150 / 150 350 / 500 Balance 571.25 / 2171.25 498.75 / 2670.00 Weight last 48 hrs Weight 59.647 kg Weight 56.416 kg Physical Exam Const: COMMON NORMALS: no apparent distress and oriented x3 GENERAL APPEARANCE: cooperative, comfortable, ill appearing and frail appearing (fatigued) ORIENTATION/CONSCIOUSNESS: Yes awake HENMT: COMMON NORMALS: normocephalic, head/scalp atraumatic, hearing grossly normal bilaterally and moist oral mucous membranes HEAD & SCALP: normocephalic and atraumatic Eye: COMMON NORMALS: PERRL, EOMs intact bilaterally and conjunctivae normal CONJUNCTIVA: Yes conjunctivae normal PUPIL: Yes PERRL Neck/C-Spine: COMMON NORMALS: full ROM GENERAL: Yes normal visual inspection and Yes trachea midline Resp: COMMON NORMALS: normal respiratory effort, no retractions, no use of accessory muscles and clear to auscultation bilaterally EFFORT & INSPECTION: Yes able to speak in complete sentences, Yes symmetric chest movement and No tachypneic AUSCULTATION: clear to auscultation bilaterally Cardio: COMMON NORMALS: S1 normal heart sound, S2 normal heart sound and no murmurs RATE: tachycardic RHYTHM: abnormal rhythm irregularly irregular HEART SOUNDS: S1 normal and S2 normal GI: COMMON NORMALS: normal to inspection, nondistended, normoactive bowel sounds, soft to palpation and non-tender PALPATION: Yes soft Extremity: COMMON NORMALS: normal to inspection, full ROM and no clubbing, cyanosis or edema; negative for no pedal edema Neuro: COMMON NORMALS: oriented x3, moves all extremities, no focal motor deficits and no sensory deficits noted Psych: COMMON NORMALS: mental status grossly normal, thought process normal, cooperative, affect normal and speech normal SPEECH: Yes normal speech THOUGHT PROCESS: normal thought process Skin: COMMON NORMALS: no rashes or lesions noted, no jaundice, no petechiae and no mottling GENERAL SKIN EXAM: no rashes or lesions noted Data : 09/10/19 04:32 09/11/19 03:50 Micro: Microbiology 09/10/19 07:35 Bacterial Antigens - Final Urine,Voided 09/10/19 07:35 Legionella Urinary Antigen - Final Urine,Voided 09/08/19 15:16 Urine Culture - Final Urine,Clean Catch A&P Assessment and plan (1) Community acquired pneumonia: -noted patchy consolidation of right lung base on CXR; given continued tachycardia and fever as well as ill appearance will repeat chest x-ray to monitor progression of pneumonia -concern for sepsis given fever, tachycardia, leukopenia, thrombocytopenia. -continue to monitor respiratory status -supplemental oxygen as needed -continue to monitor vital signs -received Ceftriaxone and Azithromycin in ED, has been on treatment with Vancomycin/Metronidazole; will switch Vanc to Ceftriaxone -continue to monitor WBC, platelet count -negative for influenza; bacterial antigens, Legionella also negative -blood cx: prelim negative -ST evaluation appreciated: switched to mechanical soft with nectar thick liqu ids -aspiration precautions Status: Acute Qualifiers: Laterality: right Lung location: lower lobe of lung Qualified Code(s): J18.9 - Pneumonia, unspecified organism Code(s): J18.9 - Pneumonia, unspecified organism (2) Hypertension: -quite hypertensive on arrival, has been off antihypertensives for at least 2 days prior to admission -resumed oral antihypertensives -continue to monitor vital signs; stable BP Status: Acute Qualifiers: Hypertension type: essential hypertension Qualified Code(s): I10 - Essential (primary) hypertension Code(s): I10 - Essential (primary) hypertension (3) Osteoarthritis: -resumed oral pain meds Status: Acute Qualifiers: Osteoarthritis location: multiple joints Osteoarthritis type: primary Qualified Code(s): M15.0 - Primary generalized (osteo)arthritis Code(s): M19.90 - Unspecified osteoarthritis, unspecified site Additional A&P Information -Advanced age -Chronic normocytic anemia; baseline Hg 9-10; continue to monitor H/H. Stable -Chronic leukopenia; baseline WBC 3-4. Not neutropenic -Acute thrombocytopenia; monitor platelet count -mild FREIDA; baseline Cr wnl; gentle IVF hydration. Continue to monitor renal function -Atrial fibrillation with RVR; telemetry monitoring; on BB, oral cardizem -Hyponatremia; on IVF hydration -low salt diet as tolerated -DVT ppx with SCDs, d/c Lovenox due to low platelet count, anemia -fall precautions, PT evaluation -Dispo: home -Code status: FULL code Attestations Medical Necessity Statement*: Patient requires hospitalization for continued management of aspiration pneumonia, on IV antibiotics. Time Spent in Patient Care: Greater than 35 minutes (>than 50% of time spent in counselling and/or direct pt care on unit) . Coding Level of Care Code Acute Seed Potato Cutter for Camilo Jones Exam Problem Focused Diagnoses Community acquired pneumonia J18.9 Laterality: right Lung location: lower lobe of lung Hypertension I10 Hypertension type: essential hypertension Osteoarthritis M15.0 Osteoarthritis location: multiple joints Osteoarthritis type: primary
--- NOTE | 2019-09-11 09:10 | PC.SOCIAL ---
IMM Page 2 of IMM explained to and signed by patient. Initialed, dated, and timed and placed in chart. Copy provided to patient.
[2019-09-11] MEDS: acetaminophen 325 mg Tablet 650 MG PO (16:05)
[2019-09-11] MEDS: vancomycin 750 MG in sodium chloride 0.9% 250 ML 250 MG IV (16:06)
[2019-09-11 16:48] LABS: Vancomycin Trough 19.2 ug/mL (10-15)
--- NOTE | 2019-09-11 17:30 | XR_ITS ---
WS: [id number] Portable AP upright chest, 09/11/2019 Clinical Data: progression of pneumonia, fever, tachycardia Comparison: Portable chest, 09/08/2019 Findings: The lower lobes now have significant opacities which probably represent progression of pneu monia. There is a patchy opacity overlying the right upper lobe which probably represents minimal pne umonia. The left upper lobe is clear. The heart size is obscured by the patchy opacities. The pulmona ry vascularity is not increased. The aortic arch is tortuous. XR/XR chest 1V portable [id number] Impression: 1. Bibasilar opacities which probably represent progression of pneumonia. 2. Minimal right upper lobe opacity which may represent pneumonia. 3. Atherosclerosis.
[2019-09-11] MEDS: cefTRIAXone 2,000 MG in sodium chloride 0.9% (plus) 50 ML 100 MG IV (18:09)
[2019-09-11] MEDS: cyclobenzaprine 10 mg Tablet PO (20:08)
[2019-09-12] VITALS (19 sets, daily range): BP systolic 116–149; BP diastolic 68–81; PULSE 78–130; RESP 16–28; TEMP 37–38.8; O2SAT 88–97
[2019-09-12] MEDS: acetaminophen 325 mg Tablet 650 MG PO (02:26)
[2019-09-12] MEDS: metoprolol tartrate 1 mg/1 mL SDV 5 mL 5 MG IV (03:07)
[2019-09-12] MEDS: dilTIAZem 30 mg Tablet 60 MG PO ×4 (03:16→22:33)
[2019-09-12] MEDS: bumetanide 0.25 mg/mL SDV 10 mL 2 MG IV (03:23)
--- NOTE | 2019-09-12 03:23 | PC.PHAR ---
Vancomycin is dosed at 1000mg IVPB every 24 hours to produce a predicted trough level of 15.06 (population based pharmacokinetic analysis). A trough level has been ordered from the lab to be obtained before the third dose to confirm and adjust if needed. Zosyn is dosed at 3.375gm IVPB every 8 hours, each dose to be infused over 4 hours per extended infusion protocol.
[2019-09-12] MEDS: vancomycin 1,000 MG in sodium chloride 0.9% 250 ML 250 MG IV (03:33)
[2019-09-12 04:30] LABS: Hematocrit 31.7 % (37.0-47.0); Hemoglobin 10.5 g/dL (11.5-15.3); Lymphocytes # 0.4 10^3/uL (0.8-4.8); Lymphocytes % 15.9 %; Mean Corpuscular HGB Conc 33.1 g/dL (30.0-36.0); Mean Corpuscular Hemoglobin 35.2 pg (28.0-34.0); Mean Corpuscular Volume 106.4 fL (81-99); Mean Platelet Volume 9.9 fL (7.4-10.4); Monocytes # 0.2 10^3/uL (0.2-0.9); Monocytes % 7.8 %; Neutrophils % 74.4 %; Nucleated Red Blood Cells % 0 %; Platelet Count 114 10^3/cmm (130-400); Red Blood Count 2.98 10^6/uL (4.1-5.3); Red Cell Distribution Width 13.4 % (12.1-15.1); White Blood Count 2.7 10^3/uL (4.0-10.0)
[2019-09-12 04:51] LABS: Anion Gap 18.4 (5-19); Blood Urea Nitrogen 24 mg/dL (8-23); Carbon Dioxide 21 mmol/L (22-29); Chloride 97 mmol/L (98-107); Glucose 115 mg/dL (65-115); Osmolality Calculated 274 mOsm/kg (285-295); Potassium 3.4 mmol/L (3.5-5.1); Sodium 133 mmol/L (136-145)
[2019-09-12] MEDS: piperacillin-tazobactam 3.375 GM in sodium chloride 0.9% (plus) 50 ML IV ×3 (05:03→22:32)
[2019-09-12 05:38] LABS: Slide Review Slide Review Perform
[2019-09-12] MEDS: oxyCODONE-APAP 5-325 mg Tablet 1 TAB PO ×2 (12:07→18:14)
--- NOTE | 2019-09-12 13:43 | PM.PN ---
Subjective Subjective: Interval history: Overnight, was switched to Vanc/Zosyn; oxygen requirement has increased and due to noted tachycardia, had cardizem increased to 60 mg q6h. son at bedside, seems to be in better spirits though son comments that she is having acute difficulty with her hearing, remains on oxygen mask, currently set at 10 L, saturating at 93%. Appetite slightly improved today. Medications: Reviewed: Yes Medication Review Details: Current Medications Generic Name Dose Route Start Last Admin Trade Name Freq PRN Reason Stop Dose Admin Acetaminophen 650 mg 09/08/19 21:00 09/12/19 02:26 Tylenol PO 650 mg Q6H PRN Administration Mild/Mod Pain Or Temp >/= 101 Albuterol Sulfate 2.5 mg 09/10/19 16:00 09/12/19 10:44 Albuterol INHALATION 2.5 mg Q4H.RESPIRATORY P RN Administration SHORTNESS OF ALESSANDRO TH Bisoprolol Fumarat e 10 mg 09/09/19 09:00 09/12/19 08:17 Zebeta PO 10 mg DAILY KIRK Administration Cyclobenzaprine HC l 10 mg 09/08/19 18:08 09/11/19 20:08 Flexeril PO 10 mg TID PRN Administration Muscle Spasm Diltiazem HCl 60 mg 09/12/19 03:05 09/12/19 08:17 Cardizem PO 60 mg Q6H KIRK Administration Sodium Chloride 1,000 mls @ 100 m ls/hr 09/08/19 18:15 09/11/19 09:15 Sodium Chloride 0.9% IV 0 mls/hr .Q10H KIRK Infusion Piperacillin Sod/T azobactam 50 mls @ 12.5 mls /hr 09/12/19 04:00 09/12/19 12:06 Sod 3.375 gm/ So dium Chloride IV 12.5 mls/hr Q8H KIRK Administration Protocol As Directed Vancomycin HCl 1,0 00 mg/ 250 mls @ 250 mls /hr 09/12/19 03:00 09/12/19 05:03 Sodium Chloride IV Infused Q24H KIRK Infusion Protocol As Directed Metoprolol Tartrat e 5 mg 09/10/19 12:11 09/12/19 03:07 Metoprolol Tartr ate IV 5 mg Q4H PRN Administration HEART RATE-HIGH Oxycodone/Acetamin ophen 1 tab 09/08/19 18:08 09/12/19 12:07 Percocet 5-325 M g PO 1 tab Q4H PRN Administration SEVERE PAIN Vitals/I&O/Wt Last Vital Signs Temp 99.6 F 09/12/19 12:00 Pulse 78 09/12/19 12:00 Resp 28 H 09/12/19 12:07 BP 149/68 09/12/19 12:00 Pulse Ox 97 09/12/19 12:00 09/11/19 09/12/19 09/12/19 22:59 06:59 14:59 Intake Total 320 / 738.75 310 / 1048.75 370 / 370 Output Total 550 / 550 300 / 850 900 / 900 Balance -230 / 188.75 10 / 198.75 -530 / -530 Weight last 48 hrs Weight 56.518 kg Weight 59.647 kg Physical Exam Const: COMMON NORMALS: no apparent distress and oriented x3 GENERAL APPEARANCE: cooperative, comfortable, ill appearing and frail appearing (fatigued) ORIENTATION/CONSCIOUSNESS: Yes awake HENMT: COMMON NORMALS: normocephalic, head/scalp atraumatic, hearing grossly normal bilaterally and moist oral mucous membranes HEAD & SCALP: normocephalic and atraumatic Eye: COMMON NORMALS: PERRL, EOMs intact bilaterally and conjunctivae normal CONJUNCTIVA: Yes conjunctivae normal PUPIL: Yes PERRL Neck/C-Spine: COMMON NORMALS: full ROM GENERAL: Yes normal visual inspection and Yes trachea midline Resp: COMMON NORMALS: normal respiratory effort, no retractions, no use of accessory muscles and clear to auscultation bilaterally EFFORT & INSPECTION: Yes able to speak in complete sentences, Yes symmetric chest movement and No tachypneic AUSCULTATION: clear to auscultation bilaterally Cardio: COMMON NORMALS: S1 normal heart sound, S2 normal heart sound and no murmurs RATE: tachycardic RHYTHM: abnormal rhythm irregularly irregular HEART SOUNDS: S1 normal and S2 normal GI: COMMON NORMALS: normal to inspection, nondistended, normoactive bowel sounds, soft to palpation and non-tender PALPATION: Yes soft Extremity: COMMON NORMALS: normal to inspection, full ROM and no clubbing, cyanosis or edema; negative for no pedal edema Neuro: COMMON NORMALS: oriented x3, moves all extremities, no focal motor deficits and no sensory deficits noted Psych: COMMON NORMALS: mental status grossly normal, thought process normal, cooperative, affect normal and speech normal SPEECH: Yes normal speech THOUGHT PROCESS: normal thought process Skin: COMMON NORMALS: no rashes or lesions noted, no jaundice, no petechiae and no mottling GENERAL SKIN EXAM: no rashes or lesions noted Data : 09/12/19 02:45 09/12/19 02:45 A&P Assessment and plan (1) Community acquired pneumonia: -noted patchy consolidation of right lung base on CXR; given continued tachycardia and fever as well as ill appearance repeat chest x-ray done showing bibasilar opacities -concern for sepsis given fever, tachycardia, leukopenia, thrombocytopenia, hypoxia. -continue to monitor respiratory status -supplemental oxygen as needed; oxygen requirement has increased -continue to monitor vital signs -switched to Vanc/Zosyn -continue to monitor WBC, platelet count -negative for influenza; bacterial antigens, Legionella also negative -blood cx: prelim negative -ST evaluation appreciated: switched to mechanical soft with nectar thick liquids -aspiration precautions Status: Acute Qualifiers: Laterality: right Lung location: lower lobe of lung Qualified Code(s): J18.9 - Pneumonia, unspecified organism Code(s): J18.9 - Pneumonia, unspecified organism (2) Hypertension: -quite hypertensive on arrival, had been off antihypertensives for at least 2 days prior to admission -resumed oral antihypertensives -continue to monitor vital signs; stable BP Status: Acute Qualifiers: Hypertension type: essential hypertension Qualified Code(s): I10 - Essential (primary) hypertension Code(s): I10 - Essential (primary) hypertension (3) Osteoarthritis: -on oral pain meds Status: Acute Qualifiers: Osteoarthritis location: multiple joints Osteoarthritis type: primary Qualified Code(s): M15.0 - Primary generalized (osteo)arthritis Code(s): M19.90 - Unspecified osteoarthritis, unspecified site Additional A&P Information -Advanced age -Chronic normocytic anemia; baseline Hg 9-10; continue to monitor H/H. Stable -Chronic leukopenia; baseline WBC 3-4. Not neutropenic -Acute thrombocytopenia; monitor platelet count; stable -mild FREIDA; baseline Cr wnl; off IVF hydration. Continue to monitor renal function -Atrial fibrillation with RVR; telemetry monitoring; on BB, oral cardizem; dose increased overnight for optimal heart rate control -Hyponatremia; off IVF hydration; improving -low salt diet as tolerated -DVT ppx with SCDs, d/c Lovenox due to low platelet count, anemia -fall precautions, PT evaluation appreciated -Dispo: home -Code status: FULL code Attestations Medical Necessity Statement*: Patient requires hospitalization for continued treatment of pneumonia, with continued concern for aspiration. Time Spent in Patient Care: Greater than 35 minutes (>than 50% of time spent in counselling and/or direct pt care on unit). Coding Level of Care Code Acute Management Coordinator for Camilo Collinsd Exam Problem Focused Diagnoses Community acquired pneumonia J18.9 Laterality: right Lung location: lower lobe of lung Hypertension I10 Hypertension type: essential hypertension Osteoarthritis M15.0 Osteoarthritis location: multiple joints Osteoarthritis type: primary
[2019-09-12] MEDS: HYDROmorphone 1 mg/mL INJ 1 mL 0.5 MG IVP (19:36)
[2019-09-12] MEDS: acetaminophen 650 mg Supp PR (20:00)
[2019-09-13] VITALS (11 sets, daily range): BP systolic 133–144; BP diastolic 59–78; PULSE 78–105; RESP 16–32; TEMP 36.4–37.4; O2SAT 90–95
[2019-09-13] MEDS: HYDROmorphone 1 mg/mL INJ 1 mL 0.5 MG IVP ×3 (04:16→18:02)
[2019-09-13] MEDS: vancomycin 1,000 MG in sodium chloride 0.9% 250 ML 250 MG IV (04:18)
[2019-09-13] MEDS: piperacillin-tazobactam 3.375 GM in sodium chloride 0.9% (plus) 50 ML IV ×3 (05:33→22:13)
--- NOTE | 2019-09-13 08:15 | P.PN_ITS ---
Subjective Subjective: Interval history: Spiked temp of 101.8 F yesterday evening, has been afebrile since, HR better controlled. Continues to have high oxygen requirement. Patient seen and examined, family at bedside, remains on 12 L oxygen mask. Informed by nursing staff that patient's family was giving her thin liquids so was likely continuing to aspirate. Discussed this further with patient's and family emphasizing need for compliance with nectar thick liquids to prevent further aspiration and worsening of pneumonia. Family informs me that patient seems to have an acute impairment in her hearing which was not present prior to her hospitalization. Medications: Reviewed: Yes Medication Review Details: Current Medications Generic Name Dose Route Start Last Admin Trade Name Freq PRN Reason Stop Dose Admin Acetaminophen 650 mg 09/08/19 21:00 09/12/19 02:26 Tylenol PO 650 mg Q6H PRN Administration Mild/Mod Pain Or Temp >/= 101 Acetaminophen 650 mg 09/12/19 19:18 09/12/19 20:00 Tylenol AR 650 mg Q6H PRN Administration FEVER Albuterol Sulfate 2.5 mg 09/10/19 16:00 09/13/19 07:38 Albuterol INHALATION 2.5 mg Q4H.RESPIRATORY P RN Administration SHORTNESS OF ALESSANDOR TH Bisoprolol Fumarat e 10 mg 09/09/19 09:00 09/12/19 08:17 Zebeta PO 10 mg DAILY KIRK Administration Cyclobenzaprine HC l 10 mg 09/08/19 18:08 09/11/19 20:08 Flexeril PO 10 mg TID PRN Administration Muscle Spasm Diltiazem HCl 60 mg 09/12/19 03:05 09/13/19 04:28 Cardizem PO Not Given Q6H KIRK Hydromorphone HCl 0.5 mg 09/12/19 19:17 09/13/19 04:16 Dilaudid Inj IVP 0.5 mg Q6H PRN Administration PAIN Sodium Chloride 1,000 mls @ 100 m ls/hr 09/08/19 18:15 09/11/19 09:15 Sodium Chloride 0.9% IV 0 mls/hr .Q10H KIRK Infusion Piperacillin Sod/T azobactam 50 mls @ 12.5 mls /hr 09/12/19 04:00 09/13/19 05:33 Sod 3.375 gm/ So dium Chloride IV 12.5 mls/hr Q8H KIRK Administration Protocol As Directed Vancomycin HCl 1,0 00 mg/ 250 mls @ 250 mls /hr 09/12/19 03:00 09/13/19 04:18 Sodium Chloride IV 250 mls/hr Q24H KIRK Administration Protocol As Directed Metoprolol Tartrat e 5 mg 09/10/19 12:11 09/12/19 03:07 Metoprolol Tartr ate IV 5 mg Q4H PRN Administration HEART RATE-HIGH Oxycodone/Acetamin ophen 1 tab 09/08/19 18:08 09/12/19 18:14 Percocet 5-325 M g PO 1 tab Q4H PRN Administration SEVERE PAIN Vitals/I&O/Wt Last Vital Signs Temp 98.5 F 09/13/19 07:58 Pulse 105 H 09/13/19 07:58 Resp 32 H 09/13/19 07:58 BP 133/69 09/13/19 07:58 Pulse Ox 91 09/13/19 07:58 09/12/19 09/13/19 09/13/19 22:59 06:59 14:59 Intake Total 80 / 450 50 / 500 240 / 240 Output Total 200 / 200 Balance 80 / -450 50 / -400 40 / 40 Weight last 48 hrs Weight 56.79 kg Weight 56.518 kg Physical Exam Const: COMMON NORMALS: no apparent distress and oriented x3 GENERAL APPEARANCE: cooperative, comfortable, ill appearing and frail appearing (fatigued) ORIENTATION/CONSCIOUSNESS: Yes awake HENMT: COMMON NORMALS: normocephalic, head/scalp atraumatic and moist oral mucous membranes HEAD & SCALP: normocephalic and atraumatic GENERAL EAR: hearing grossly impaired Laterality: bilateral Eye: COMMON NORMALS: PERRL, EOMs intact bilaterally and conjunctivae normal CONJUNCTIVA: Yes conjunctivae normal PUPIL: Yes PERRL Neck/C-Spine: COMMON NORMALS: full ROM GENERAL: Yes normal visual inspection and Yes trachea midline Resp: COMMON NORMALS: normal respiratory effort, no retractions and no use of accessory muscles EFFORT & INSPECTION: Yes able to speak in complete sentences, Yes symmetric chest movement and No tachypneic AUSCULTATION: rhonchi upper bilaterally OTHER: -High oxygen requirement, currently on 12 L oxygen mask Cardio: COMMON NORMALS: S1 normal heart sound, S2 normal heart sound and no murmurs RATE: tachycardic RHYTHM: abnormal rhythm irregularly irregular HEART SOUNDS: S1 normal and S2 normal GI: COMMON NORMALS: normal to inspection, nondistended, normoactive bowel sounds, soft to palpation and non-tender PALPATION: Yes soft Extremity: COMMON NORMALS: normal to inspection, full ROM and no clubbing, cyanosis or edema; negative for no pedal edema Neuro: COMMON NORMALS: oriented x3, moves all extremities, no focal motor deficits and no sensory deficits noted Psych: COMMON NORMALS: mental status grossly normal, thought process normal, cooperative, affect normal and speech normal SPEECH: Yes normal speech THOUGHT PROCESS: normal thought process Skin: COMMON NORMALS: no rashes or lesions noted, no jaundice, no petechiae and no mottling GENERAL SKIN EXAM: no rashes or lesions noted Data : 09/12/19 02:45 09/12/19 02:45 A&P Assessment and plan (1) Community acquired pneumonia: -noted patchy consolidation of right lung base on CXR; given continued tachycardia and fever as well as ill appearance repeat chest x-ray done showing bibasilar opacities -concern for sepsis given fever, tachycardia, leukopenia, thrombocytopenia, hypoxia. -continue to monitor respiratory status -supplemental oxygen as needed; oxygen requirement has increased -continue to monitor vital signs -continue Vanc/Zosyn (day 2) -continue to monitor WBC, platelet count -negative for influenza; bacterial antigens, Legionella also negative -blood cx: prelim negative -ST evaluation appreciated: switched to mechanical soft with nectar thick liquids -aspiration precautions Status: Acute Qualifiers: Laterality: right Lung location: lower lobe of lung Qualified Code(s): J18.9 - Pneumonia, unspecified organism Code(s): J18.9 - Pneumonia, unspecified organism (2) Hypertension: -quite hypertensive on arrival, had been off antihypertensives for at least 2 days prior to admission -continue oral antihypertensives -continue to monitor vital signs; stable BP Status: Acute Qualifiers: Hypertension type: essential hypertension Qualified Code(s): I10 - Essential (primary) hypertension Code(s): I10 - Essential (primary) hypertension (3) Osteoarthritis: -on oral pain meds Status: Acute Qualifiers: Osteoarthritis location: multiple joints Osteoarthritis type: primary Qualified Code(s): M15.0 - Primary generalized (osteo)arthritis Code(s): M19.90 - Unspecified osteoarthritis, unspecified site Additional A&P Information -Advanced age -Chronic normocytic anemia; baseline Hg 9-10; continue to monitor H/H. Stable -Chronic leukopenia; baseline WBC 3-4. Not neutropenic -Acute thrombocytopenia; monitor platelet count; stable -mild FREIDA; baseline Cr wnl; off IVF hydration. Continue to monitor renal function -Atrial fibrillation with RVR; telemetry monitoring; on BB, oral cardizem; dose increased with improved heart rate control -Hyponatremia; off IVF hydration; improving -hard of hearing; will need evaluation of her hearing as outpatient; not on any ototoxic meds -low salt diet as tolerated -DVT ppx with SCDs, d/c Lovenox due to low platelet count, anemia -fall precautions, PT evaluation appreciated -Dispo: home -Code status: FULL code Attestations Medical Necessity Statement*: Patient requires hospitalization for continued treatment of pneumonia, on IV antibiotics, and has high oxygen requirement. Time Spent in Patient Care: Greater than 35 minutes (>than 50% of time spent in counselling and/or direct pt care on unit) . Coding Level of Care Code Acute Sccm Administrator for Yuryg 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
[2019-09-13] MEDS: dilTIAZem 30 mg Tablet 60 MG PO ×3 (08:39→22:14)
--- NOTE | 2019-09-13 10:40 | PC.SOCIAL ---
IMM Updated Page 2 of IMM updated and given to patient. Initialed, dated, and timed and placed back in chart.
[2019-09-13] MEDS: oxyCODONE-APAP 5-325 mg Tablet 1 TAB PO ×3 (10:48→22:12)
[2019-09-13] MEDS: cyclobenzaprine 10 mg Tablet PO (22:12)
[2019-09-14] VITALS (14 sets, daily range): BP systolic 116–160; BP diastolic 74–92; PULSE 90–105; RESP 12–43; TEMP 36.6–37.2; O2SAT 90–95
[2019-09-14 00:19] LABS: ABG PCO2 29.2 mmHg (35-45); ABG PH Result 7.47 (7.35-7.45); Arterial Blood Gas Hematocrit 33.2 % (37-47); Base Excess ABG -1.8 mmol/L (-2.0-2.0); Blood Gas Allen Test Pos; Blood Gas Sample Site Radial, left; Blood Gas Sample Type Arterial; HCO3 ABG 21.1 mmol/L (22-26); PO2 ABG 39.3 mmHg (80.0-100.0)
[2019-09-14] MEDS: LORazepam 2 mg/mL INJ 1 mL 0.5 MG IVP (00:33)
[2019-09-14 02:28] LABS: Vancomycin Trough 24.2 ug/mL (10-15)
[2019-09-14] MEDS: vancomycin 1,000 MG in sodium chloride 0.9% 250 ML 250 MG IV (03:44)
--- NOTE | 2019-09-14 03:54 | PC.NURSE ---
Phys ordered 1:1 d/t low O2 on ABG and decrease in alt mental state and inability to redirected to keep O2 on. Family in room and educated on importance of keeping O2 on the patient and told also a 1:1 would be there 26/02 if they needed to go home and rest. Pt family is agreeable and understands instructions.
--- NOTE | 2019-09-14 04:35 | PC.PHAR ---
Vancomycin trough levelis 24.2. We will hold this dose and reduce to 1gm IVPB every 48 hours with a repeat trough level before the fourth dose at this rate.
[2019-09-14 05:49] LABS: Basophils % 0.2 %; Hematocrit 31.7 % (37.0-47.0); Hemoglobin 10.2 g/dL (11.5-15.3); Lymphocytes # 1.6 10^3/uL (0.8-4.8); Lymphocytes % 38.2 %; Mean Corpuscular HGB Conc 32.2 g/dL (30.0-36.0); Mean Corpuscular Hemoglobin 35.5 pg (28.0-34.0); Mean Corpuscular Volume 110.5 fL (81-99); Mean Platelet Volume 9.8 fL (7.4-10.4); Monocytes # 0.2 10^3/uL (0.2-0.9); Monocytes % 4.1 %; Neutrophils # 2.3 10^3/uL (1.8-7.7); Neutrophils % 55.8 %; Nucleated Red Blood Cells % 0 %; Platelet Count 130 10^3/cmm (130-400); Red Blood Count 2.87 10^6/uL (4.1-5.3); Red Cell Distribution Width 13.6 % (12.1-15.1); White Blood Count 4.1 10^3/uL (4.0-10.0)
[2019-09-14 06:03] LABS: Anion Gap 21.3 (5-19); Blood Urea Nitrogen 37 mg/dL (8-23); Calcium 9.3 mg/dL (8.5-10.5); Carbon Dioxide 18 mmol/L (22-29); Chloride 104 mmol/L (98-107); Glucose 95 mg/dL (65-115); Osmolality Calculated 287 mOsm/kg (285-295); Potassium 3.3 mmol/L (3.5-5.1); Sodium 140 mmol/L (136-145)
[2019-09-14 06:38] LABS: Slide Review Slide Review Perform
--- NOTE | 2019-09-14 06:51 | P.MISC_ITS ---
Miscellaneous Note Purpose of Documentation: Overnight patient had episodes of increased work of breathing, episodes of confusion. During my examination, patient states that she is feeling short of breath, alert oriented x1, has episodes of confusion. repeat ABG shows a PO2 of 39.3, likely secondary to patient not keeping her oxygen mask on, ordered a one-on-one sitter, instructed patient and family to keep an oxygen mask. Patient continues to have episodes of increased work of breathing, shortness of breath, will put the patient on BiPAP 14/7 40% FiO2, patient is on broad-spectrum antibiotics, continue nebulizer treatments, consider CT of the chest to evaluate for possible right pleural effusion. Review of patient's living will from the assisted staff shows that she does not want CPR, no mechanical ventilation, I have changed this in the computer, but also says no antibiotics? Will have morning team go over this with patient and family.
[2019-09-14 07:15] LABS: ABG PH Result 7.39 (7.35-7.45); Arterial Blood Gas Hematocrit 51.8 % (37-47); Base Excess ABG -3.1 mmol/L (-2.0-2.0); Blood Gas Allen Test Pos; Blood Gas Sample Site Radial, left; Blood Gas Sample Type Arterial; HCO3 ABG 21.1 mmol/L (22-26); Oxygen Device NC
[2019-09-14] MEDS: ipratropium-albuterol 3 mL Neb INHALATION ×2 (07:39→10:51)
--- NOTE | 2019-09-14 08:31 | PM.PN ---
Subjective Subjective: Interval history: Overnight, respiratory status decompensated and now on BiPAP. Has 1:1 sitter due to altered mental status likely due to hypoxia. Noted ABG. Afebrile overnight. Patient seen and examined, has multiple family members at bedside, quite confused, has BiPAP in place but requires frequent encouragement to keep it on. Had an extensive goals of care discussion with family, they have provided a copy of patient's advanced directives detailing her wishes including not wanting aggressive measures. CODE STATUS changed to reflect this. Family has agreed to transition her to comfort measures and would like to take her home with hospice. Case management assisting with arranging this. Medications: Reviewed: Yes Medication Review Details: Current Medications Generic Name Dose Route Start Last Admin Trade Name Freq PRN Reason Stop Dose Admin Acetaminophen 650 mg 09/08/19 21:00 09/12/19 02:26 Tylenol PO 650 mg Q6H PRN Administration Mild/Mod Pain Or Temp >/= 101 Acetaminophen 650 mg 09/12/19 19:18 09/12/19 20:00 Tylenol OR 650 mg Q6H PRN Administration FEVER Albuterol/Ipratrop ium 3 ml 09/14/19 07:00 09/14/19 07:39 Duoneb INHALATION 3 ml Q4H.RESPIRATORY S CH Administration Bisoprolol Fumarat e 10 mg 09/09/19 09:00 09/13/19 08:39 Zebeta PO 10 mg DAILY KIRK Administration Cyclobenzaprine HC l 10 mg 09/08/19 18:08 09/13/19 22:12 Flexeril PO 10 mg TID PRN Administration Muscle Spasm Diltiazem HCl 60 mg 09/12/19 03:05 09/14/19 03:50 Cardizem PO Not Given Q6H KIRK Hydromorphone HCl 0.5 mg 09/12/19 19:17 09/13/19 18:02 Dilaudid Inj IVP 0.5 mg Q6H PRN Administration PAIN Piperacillin Sod/T azobactam 50 mls @ 12.5 mls /hr 09/12/19 04:00 09/14/19 02:13 Sod 3.375 gm/ So dium Chloride IV Infused Q8H KIRK Infusion Protocol As Directed Lorazepam 0.5 mg 09/14/19 00:12 09/14/19 00:33 Ativan IVP 0.5 mg ONCE PRN Administration ANXIETY Metoprolol Tartrat e 5 mg 09/10/19 12:11 09/12/19 03:07 Metoprolol Tartr ate IV 5 mg Q4H PRN Administration HEART RATE-HIGH Oxycodone/Acetamin ophen 1 tab 09/08/19 18:08 09/13/19 22:12 Percocet 5-325 M g PO 1 tab Q4H PRN Administration SEVERE PAIN Vitals/I&O/Wt Last Vital Signs Temp 98.3 F 09/14/19 07:17 Pulse 101 H 09/14/19 07:47 Resp 40 H 09/14/19 07:40 BP 160/78 09/14/19 07:17 Pulse Ox 93 09/14/19 07:40 09/13/19 09/14/19 09/14/19 22:59 06:59 14:59 Intake Total 50 / 340 50 / 390 Output Total 400 / 600 Balance 50 / 140 -350 / -210 Weight last 48 hrs Weight 57.017 kg Weight 56.79 kg Physical Exam Const: COMMON NORMALS: no apparent distress GENERAL APPEARANCE: cooperative, comfortable, ill appearing and frail appearing (fatigued) ORIENTATION/CONSCIOUSNESS: Yes awake, Yes confused and Yes other (Quite disoriented) HENMT: COMMON NORMALS: normocephalic and head/scalp atraumatic HEAD & SCALP: normocephalic and atraumatic GENERAL EAR: hearing grossly impaired Laterality: bilateral MOUTH: moist mucous membranes abnormal Details: parched Eye: COMMON NORMALS: PERRL, EOMs intact bilaterally and conjunctivae normal CONJUNCTIVA: Yes conjunctivae normal PUPIL: Yes PERRL Neck/C-Spine: COMMON NORMALS: full ROM GENERAL: Yes normal visual inspection and Yes trachea midline Resp: COMMON NORMALS: normal respiratory effort, no retractions and no use of accessory muscles EFFORT & INSPECTION: Yes symmetric chest movement and Yes tachypneic AUSCULTATION: rhonchi upper bilaterally OTHER: -High oxygen requirement, currently on BiPAP Cardio: COMMON NORMALS: S1 normal heart sound, S2 normal heart sound and no murmurs RATE: tachycardic RHYTHM: abnormal rhythm irregularly irregular HEART SOUNDS: S1 normal and S2 normal GI: COMMON NORMALS: normal to inspection, nondistended, normoactive bowel sounds, soft to palpation and non-tender PALPATION: Yes soft Extremity: COMMON NORMALS: normal to inspection, full ROM and no clubbing, cyanosis or edema; negative for no pedal edema Neuro: COMMON NORMALS: moves all extremities, no focal motor deficits and no sensory deficits noted Psych: THOUGHT PROCESS: confused Skin: COMMON NORMALS: no rashes or lesions noted, no jaundice, no petechiae and no mottling GENERAL SKIN EXAM: no rashes or lesions noted Data : 09/14/19 05:05 09/14/19 05:05 Micro: Microbiology 09/08/19 15:23 Blood Culture - Final Blood NO GROWTH AFTER 5 DAYS 09/08/19 15:28 Blood Culture - Final Blood NO GROWTH AFTER 5 DAYS A&P Assessment and plan (1) Community acquired pneumonia: -noted patchy consolidation of right lung base on CXR; given continued tachycardia and fever as well as ill appearance repeat chest x-ray done showing bibasilar opacities -concern for sepsis given fever, tachycardia, leukopenia, thrombocytopenia, hypoxia. -continue to monitor respiratory status -supplemental oxygen as needed; oxygen requirement has increased -continue to monitor vital signs -continue Vanc/Zosyn (day 3) -continue to monitor WBC, platelet count -negative for influenza; bacterial antigens, Legionella also negative -blood cx: prelim negative -ST evaluation appreciated: switched to mechanical soft with nectar thick liquids -aspiration precautions -altered mental status noted overnight likely due to significant hypoxia Status: Acute Qualifiers: Laterality: right Lung location: lower lobe of lung Qualified Code(s): J18.9 - Pneumonia, unspecified organism Code(s): J18.9 - Pneumonia, unspecified organism (2) Hypertension: -quite hypertensive on arrival, had been off antihypertensives for at least 2 days prior to admission -continue oral antihypertensives -continue to monitor vital signs; stable BP Status: Acute Qualifiers: Hypertension type: essential hypertension Qualified Code(s): I10 - Essential (primary) hypertension Code(s): I10 - Essential (primary) hypertension (3) Osteoarthritis: -on oral pain meds Status: Acute Qualifiers: Osteoarthritis location: multiple joints Osteoarthritis type: primary Qualified Code(s): M15.0 - Primary generalized (osteo)arthritis Code(s): M19.90 - Unspecified osteoarthritis, unspecified site Additional A&P Information -Advanced age -Chronic normocytic anemia; baseline Hg 9-10; continue to monitor H/H. Stable -Chronic leukopenia; baseline WBC 3-4. Not neutropenic -Acute thrombocytopenia; monitor platelet count; stable -mild FREIDA; baseline Cr wnl; off IVF hydration. Continue to monitor renal function -Atrial fibrillation with RVR; telemetry monitoring; on BB, oral cardizem; dose increased with improved heart rate control -Hyponatremia; off IVF hydration; improving -hard of hearing; will need evaluation of her hearing as outpatient; not on any ototoxic meds -low salt diet as tolerated -DVT ppx with SCDs, d/c Lovenox due to low platelet count, anemia -fall precautions, PT evaluation appreciated -Dispo: home with hospice; family has chosen [place] -Code status: DNR/DNI. Had a goals of care discussion with family at bedside, agreed to transition to comfort measures. Currently arranging for hospice Attestations Medical Necessity Statement*: Patient requires hospitalization for continued comfort measures pending appropriate disposition. Time Spent in Patient Care: Greater than 35 minutes (>than 50% of time spent in counselling and/or direct pt care on unit). Coding Level of Care Code Acute Director Of Extension Work for Camilo 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
[2019-09-14] MEDS: dilTIAZem 30 mg Tablet 60 MG PO (10:30)
[2019-09-14] MEDS: HYDROmorphone 1 mg/mL INJ 1 mL 0.5 MG IVP (11:12)
[2019-09-14] MEDS: morphine 4 mg/mL SDV 1 mL 2 MG IVP ×3 (14:12→23:03)
[2019-09-14] MEDS: LORazepam 2 mg/mL INJ 1 mL IVP ×3 (14:13→23:35)
--- NOTE | 2019-09-14 19:00 | PC.NURSE ---
Introduction of staff and report received, Rn notified that family is requesting pain med.
--- NOTE | 2019-09-14 21:30 | PC.NURSE ---
Pt given ativan at 2130 per family request.
--- NOTE | 2019-09-14 23:00 | PC.NURSE ---
Pt given morphine per family request.
--- NOTE | 2019-09-14 23:30 | PC.NURSE ---
pt given ativan per family request
[2019-09-15] VITALS (7 sets, daily range): BP systolic 133–141; BP diastolic 70–71; PULSE 116–125; RESP 22–26; TEMP 36.8–37.7; O2SAT 79–81
[2019-09-15] MEDS: LORazepam 2 mg/mL INJ 1 mL IVP ×6 (01:32→16:52)
--- NOTE | 2019-09-15 01:42 | PC.NURSE ---
Pt given ativan at 0130 per family request.
[2019-09-15] MEDS: morphine 4 mg/mL SDV 1 mL 2 MG IVP ×8 (03:43→18:28)
--- NOTE | 2019-09-15 04:15 | PC.NURSE ---
pt given ativan at this time and morphine at 0343 both per family request.
--- NOTE | 2019-09-15 06:47 | PC.NURSE ---
pt given ativan per family request
--- NOTE | 2019-09-15 08:41 | PM.DCS ---
Discharge Providers Date of Admission: 09/08/19 19:08 Date of Discharge: September 15, 2019 Attending Provider at Admission: Elif Calix MD Attending Provider at Discharge: Elif Calix MD Primary Care Provider: DOCTOR NOT ON FILE Diagnoses at Discharge Discharge Diagnosis (1) Community acquired pneumonia: Status: Acute Problem details: -noted patchy consolidation of right lung base on CXR; given continued tachycardia and fever as well as ill appearance repeat chest x-ray done showing bibasilar opacities -concern for sepsis given fever, tachycardia, leukopenia, thrombocytopenia, hypoxia. -continue to monitor respiratory status -supplemental oxygen as needed; oxygen requirement has increased -continue to monitor vital signs -continue Vanc/Zosyn (day 3) -continue to monitor WBC, platelet count -negative for influenza; bacterial antigens, Legionella also negative -blood cx: prelim negative -ST evaluation appreciated: switched to mechanical soft with nectar thick liquids -aspiration precautions -altered mental status noted overnight likely due to significant hypoxia Qualifiers: Laterality: right Lung location: lower lobe of lung Qualified Code(s): J18.9 - Pneumonia, unspecified organism (2) Hypertension: Status: Acute Problem details: -quite hypertensive on arrival, had been off antihypertensives for at least 2 days prior to admission -continue oral antihypertensives -continue to monitor vital signs; stable BP Qualifiers: Hypertension type: essential hypertension Qualified Code(s): I10 - Essential (primary) hypertension (3) Osteoarthritis: Status: Acute Problem details: -on oral pain meds Qualifiers: Osteoarthritis location: multiple joints Osteoarthritis type: primary Qualified Code(s): M15.0 - Primary generalized (osteo)arthritis Other Information Additional DC diagnoses/information: -Advanced age -Chronic normocytic anemia; baseline Hg 9-10; continue to monitor H/H. Stable -Chronic leukopenia; baseline WBC 3-4. Not neutropenic -Acute thrombocytopenia; monitor platelet count; stable -mild FREIDA; baseline Cr wnl; off IVF hydration. Continue to monitor renal function -Atrial fibrillation with RVR; telemetry monitoring; on BB, oral cardizem; dose increased with improved heart rate control -Hyponatremia; off IVF hydration; improving -hard of hearing Reason for Visit Reason for Visit: Reason For Visit: PNEUMONIA, FEVER Hospital Course Hospital Course: Patient was admitted to the medical surgical floor and started on empiric IV antibiotics. She was found to have right-sided pneumonia and complained of difficulty swallowing so was evaluated by speech therapy. She was started on mechanical soft diet with nectar thick liquids. However she continued to aspirate and follow-up imaging showed worsening pneumonia. Her oxygen requirement steadily increased to the point where she was reliant on BiPAP. Her cognition declined with the decompensation in her respiratory status and she generally continued to decline. Goals of care discussion was had with patient's family and they decided on transitioning her to comfort measures. They have opted to take her home with hospice which has been arranged by case management. Patient is now bedbound, with decreased responsiveness. Anticipate that this will continue on her transition home. Discharge Summary: -Patient to follow-up with hospice provider Physical Exam Const: COMMON NORMALS: no apparent distress GENERAL APPEARANCE: ill appearing and frail appearing (fatigued) ORIENTATION/CONSCIOUSNESS: Yes awake, Yes confused and Yes other (Quite disoriented) HENMT: COMMON NORMALS: normocephalic and head/scalp atraumatic HEAD & SCALP: normocephalic and atraumatic GENERAL EAR: hearing grossly impaired Laterality: bilateral MOUTH: moist mucous membranes abnormal Details: parched Eye: COMMON NORMALS: PERRL, EOMs intact bilaterally and conjunctivae normal CONJUNCTIVA: Yes conjunctivae normal PUPIL: Yes PERRL Neck/C-Spine: COMMON NORMALS: full ROM GENERAL: Yes normal visual inspection and Yes trachea midline Resp: EFFORT & INSPECTION: Yes symmetric chest movement, Yes abnormal respiratory pattern (abdominal ), Yes tachypneic and Yes retractions supraclavicular AUSCULTATION: rhonchi upper bilaterally OTHER: -High oxygen requirement, currently on oxy-mask Cardio: COMMON NORMALS: S1 normal heart sound, S2 normal heart sound and no murmurs RATE: tachycardic RHYTHM: abnormal rhythm irregularly irregular HEART SOUNDS: S1 normal and S2 normal GI: COMMON NORMALS: normal to inspection, nondistended, normoactive bowel sounds and soft to palpation PALPATION: Yes soft Extremity: COMMON NORMALS: normal to inspection, full ROM and no clubbing, cyanosis or edema; negative for no pedal edema Neuro: COMMON NORMALS: moves all extremities OTHER: -minimal responsiveness Psych: OTHER: -minimally responsive to all stimulation Skin: COMMON NORMALS: no rashes or lesions noted, no jaundice and no petechiae GENERAL SKIN EXAM: no rashes or lesions noted and mottling Discharge Data Data Completed and Pending: Completed Studies During Hospitalization Category Date Time Status XR chest 1V sunny ble [id number] Routine Exams 09/11/19 17:30 Completed XR chest 1V sunny ble [id number] Urgent Exams 09/08/19 14:56 Completed Pending at discharge Category Date Time Status Vancomycin Trough Timed Lab 09/20/19 02:00 Ordered Vitals: Last Vital Signs Temp 98.2 F 09/15/19 07:43 Pulse 117 H 09/15/19 07:43 Resp 26 H 09/15/19 07:43 BP 141/71 09/15/19 07:43 Pulse Ox 79 L 09/15/19 07:43 Discharge Plan Discharge Patient Disposition: Hospice - Home Condition: Stable Prescriptions: New Isopto Atropine 1 % Drops 4 drp sublingual Q2H PRN (Reason: Congestion) Qty: 15 RF: 0 lorazepam 2 mg/mL concentrate 2 mg SUBLINGUAL Q4H PRN (Reason: anxiety) Qty: 30 RF: 0 morphine 10 mg/5 mL solution 2.5 mg PO Q2H PRN (Reason: air hunger or pain) Qty: 15 RF: 0 Discontinued cyclobenzaprine 10 mg tablet 10 mg PO TID PRN (Reason: Muscle Spasm) RF: 0 bisoprolol-hydrochlorothiazide 10-6.25 mg tablet 1 tab PO DAILY RF: 0 oxycodone-acetaminophen 10-325 mg tablet 1 tab PO TID PRN (Reason: Pain) RF: 0 Premarin 0.625 mg/gram cream See Rx Instructions .ROUTE .COMPLEX RF: 0 Discharge Orders: Discharge Order (Routine); Ordered 09/15/19 Ordered By: Elif Calix Referrals: [facility] [Outside] Melissa York MD [Family Provider] - (You have an appointment on at 945am. ) Discharge Diet: Advance as tolerated Discharge Activity: Bedrest Patient Instructions: Lorazepam (By mouth), Morphine, Rapid Release (By mouth), Atropine (By mouth), Hypertension, Osteoarthritis (DC), Aspiration Pneumonia (DC) Discharge Attestations Time Spent in Discharge Care*: greater than 30 min Specific Discharge Activities: Specific discharge activities: educating and/or supporting family/caregiver, discussing with onsite case manager/social workers/dc planners, documenting/other paperwork and evaluating patient/reviewing data Status at Discharge: Cognitive status at discharge: severely impaired cognition, Behavioral status at discharge: other (decreased responsiveness), Functional status at discharge: bed bound Overall status at discharge: patient has a new baseline Quality Metrics Clinical Quality Measures During this hospital stay, did patient experience: None Coding Level of Care Code Acute [employer]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
== END 2019-09-15 19:15 | disposition hospice, home (50) | DRG 871 ==
LOC: ER 18:40 → MEDSURG 18:41
PROVIDERS: Family Medicine; Admitting Provider Family Medicine; Emergency Provider Emergency Medicine; Family Provider Family Medicine; Visit Provider Family Medicine
DX: A41.9 Sepsis, unspecified organism (principal); J18.9 Pneumonia, unspecified organism; N17.9 Acute kidney failure, unspecified; E87.1 Hypo-osmolality and hyponatremia; M19.90 Unspecified osteoarthritis, unspecified site; I10 Essential (primary) hypertension; G89.29 Other chronic pain; Z90.49 Acquired absence of other specified parts of digestive tract; Z87.891 Personal history of nicotine dependence; D64.9 Anemia, unspecified; D69.6 Thrombocytopenia, unspecified; I48.91 Unspecified atrial fibrillation; H91.90 Unspecified hearing loss, unspecified ear; Z66 Do not resuscitate
CPT/HCPCS: 12345; 36415; 36600; 71045; 80048; 80053; 80202; 81001; 82803; 83605; 83690; 84145; 85025; 86403; 87040; 87086; 87449; 87804; 92610; 93005; 94640; 94660; 94664; 96372; 96374; 96375; 97116; 97161; 97530; 99283; G0378; J0456; J0696; J1170; J1650; J1956; J2060; J2270; J2405; J2543; J3370; J3490; J7030; J7050; J7611; S0030